=== PATIENT | female | born 1965 | race Two or more races ===

== ENCOUNTER 2018-05-02 12:23 | Emergency (ER) | payer OTHER ==
[~2018-05-02] VITALS: Ht 167.6 cm; Wt 63.5 kg
--- NOTE | 2018-05-02 13:46 | NUR ---
HUGO WOLFE AT BEDSIDE FOR EVAL.
--- NOTE | 2018-05-02 13:55 | NUR ---
IV LINE STARTED BLOOD DRAWN AND SENT TO LAB.
[2018-05-02] MEDS ORDERED: KETOROLAC TROMETHAMINE INJ 30 MG/ML VIAL IV ONE (14:00)
[2018-05-02] MEDS ORDERED: ACETAMINOPHEN 650 MG/20.3 ML UDC PO ONE (14:00)
[2018-05-02 14:05] LABS: BASOPHILS # (AUTO) 0.1 /CMM (0.0-0.2); BASOPHILS % (AUTO) 0.9 % (0.0-2.0); HEMATOCRIT 42 % (33-45); HEMOGLOBIN 14.7 g/dL (11.5-14.8); LYMPHOCYTES # (AUTO) 2.3 /CMM (0.8-4.8); LYMPHOCYTES % (AUTO) 25.4 % (20.0-44.0); MEAN CORPUSCULAR HGB CONC 35 g/dl (31.0-36.0); MEAN CORPUSCULAR VOLUME 83 fL (82-100); MONOCYTES # (AUTO) 0.5 /CMM (0.1-1.30); MONOCYTES % (AUTO) 5.9 % (2.0-12.0); NEUTROPHILS # (AUTO) 5.9 /CMM (1.8-8.9); NEUTROPHILS % (AUTO) 65.8 % (43.0-81.0); PLATELET COUNT (AUTO) 377 /CMM (150-450); RED BLOOD CELL COUNT(AUTO) 5.13 MIL/uL (4.0-5.2); WHITE BLOOD COUNT (AUTO) 8.9 K/uL (4.3-11.0)
--- NOTE | 2018-05-02 14:09 | NUR ---
PT REFUSED MEDS AT THIS TIME. HUGO WOLFE AWARE.
[2018-05-02 14:12] LABS: CALCIUM, SERUM 9.6 mg/dL (8.5-10.1); CREATININE 0.6 mg/dL (0.6-1.3); POTASSIUM 3.9 mmol/L (3.5-5.1)
[2018-05-02 14:18] LABS: ALBUMIN 4.2 g/dL (3.4-5.0); BILIRUBIN,TOTAL 0.4 mg/dL (0.2-1.0); TOTAL PROTEIN, SERUM 8.2 g/dL (6.4-8.2)
[2018-05-02 14:34] LABS: APPEARANCE,URINE Clear (CLEAR); BILIRUBIN,URINE Negative (NEGATIVE); BLOOD, URINE Trace-lysed Ery/uL (NEGATIVE); COLOR,URINE Yellow (YELLOW); KETONES,URINE Negative (NEGATIVE); LEUKOCYTE ESTERASE ,URINE Negative (NEGATIVE); NITRITE, URINE Negative (NEGATIVE); PH,URINE 7.5 (5.0-8.0); PROTEIN,URINE Negative (NEGATIVE); UGLUCOSE Negative (NEGATIVE); UROBILINOGEN,URINE 0.2 EU/dL (0.2)
[2018-05-02 14:35] LABS: T4 (THYROXINE) 12.8 ug/dL (4.7-13.3); THYROID STIMULATING HORMONE 1.898 uIU/mL (0.358-3.74)
[2018-05-02 14:39] LABS: BACTERIA,URINE Rare /HPF (None Seen); SQUAMOUS EPITHELIAL CELL,UR Few /HPF (None Seen); WBC,URINE 0-2 /HPF (0-3)
[2018-05-02] MEDS ORDERED: METOCLOPRAMIDE HCL 10 MG TABLET ONE (15:41)
--- NOTE | 2018-05-02 15:44 | NUR ---
Patient discharged to home in stable condition. Written and verbal after care instructions given. Patient verbalizes understanding of instruction.IV removed. Catheter intact and site benign. Pressure and 4x4 applied to site. No bleeding noted.
[2018-05-02 15:46] VITALS: BP 135/74
== END 2018-05-02 15:47 | disposition home or self-care (01) ==
LOC: ER 12:23
DX: M25.50 Pain in unspecified joint (principal); Z98.51 Tubal ligation status
CPT/HCPCS: 36415; 80053-TC; 81000-TC; 84436-TC; 84439-TC; 84443-TC; 84480; 84703-TC; 85025-TC; 85730-TC; J8597

== ENCOUNTER 2018-10-12 11:06 | Emergency (ER) | payer OTHER ==
[~2018-10-12] VITALS: Ht 167.6 cm; Wt 61.2 kg
--- NOTE | 2018-10-12 11:18 | NUR ---
PT BIBSELF FOR SOB AND ABD CRAMPING; PT [email or web address], PT ON MONITOR, PT TO BED 10, MD AT BS FOR EVAL, VSS, NAD NOTED
[2018-10-12 11:59] LABS: BASOPHILS % (AUTO) 0.6 % (0.0-2.0); EOSINOPHILS % (AUTO) 1.6 % (0.0-6.0); HEMATOCRIT 42 % (33-45); HEMOGLOBIN 14.5 g/dL (11.5-14.8); LYMPHOCYTES # (AUTO) 2.1 /CMM (0.8-4.8); LYMPHOCYTES % (AUTO) 28.2 % (20.0-44.0); MEAN CORPUSCULAR HGB CONC 35 g/dl (31.0-36.0); MEAN CORPUSCULAR VOLUME 83 fL (82-100); MONOCYTES # (AUTO) 0.5 /CMM (0.1-1.30); MONOCYTES % (AUTO) 6.5 % (2.0-12.0); NEUTROPHILS # (AUTO) 4.8 /CMM (1.8-8.9); NEUTROPHILS % (AUTO) 63.1 % (43.0-81.0); PLATELET COUNT (AUTO) 364 /CMM (150-450); RED BLOOD CELL COUNT(AUTO) 5.06 MIL/uL (4.0-5.2); WHITE BLOOD COUNT (AUTO) 7.6 K/uL (4.3-11.0)
[2018-10-12] MEDS ORDERED: ONDANSETRON HCL/PF 4 MG/2 ML VIAL IVP ONE (12:00)
[2018-10-12] MEDS ORDERED: ONDANSETRON HCL/PF 4 MG/2 ML VIAL ONE (12:00)
[2018-10-12] MEDS ORDERED: IV NS 0.9% 1,000 ML BAG IV ONE (12:00)
[2018-10-12 12:07] LABS: CALCIUM, SERUM 9.7 mg/dL (8.5-10.1); CARBON DIOXIDE 28 mmol/L (21-32); CHLORIDE 101 mmol/L (98-107); CREATININE 0.7 mg/dL (0.6-1.3); GLUCOSE 120 mg/dL (74-106); POTASSIUM 3.9 mmol/L (3.5-5.1); SODIUM SERUM 139 mmol/L (136-145); UREA NITROGEN, BLOOD 13 mg/dL (7-18)
[2018-10-12 12:12] LABS: ALANINE AMINOTRANSFERASE 21 U/L (12-78); ALBUMIN 3.9 g/dL (3.4-5.0); ALKALINE PHOSPHATASE 73 U/L (46-116); ASPARTATE AMINOTRANSFERASE 13 U/L (15-37); BILIRUBIN,DIRECT 0.1 mg/dL (0.0-0.2); BILIRUBIN,TOTAL 0.5 mg/dL (0.2-1.0); TOTAL PROTEIN, SERUM 7.9 g/dL (6.4-8.2)
--- NOTE | 2018-10-12 12:27 | NUR ---
CALLED MEENAKSHI TO HAVE IMAGE READ
--- NOTE | 2018-10-12 13:51 | NUR ---
Patient discharged to home in stable condition. Written and verbal after care instructions given. Patient verbalizes understanding of instruction.
[2018-10-12 13:54] VITALS: BP 150/56
== END 2018-10-12 13:54 | disposition home or self-care (01) ==
LOC: ER 11:07
DX: F41.9 Anxiety disorder, unspecified (principal); R11.0 Nausea; R19.7 Diarrhea, unspecified; R42 Dizziness and giddiness; M79.10 Myalgia, unspecified site; Z98.890 Other specified postprocedural states
CPT/HCPCS: 36415; 71045; 80048; 80076; 84484; 85025; 93005; 96360; 99284; J7030; J2405